=== PATIENT | male | born 1995 | race Two or more races ===

== ENCOUNTER 2017-09-25 17:05 | Emergency (ER) | payer BC, OTHER ==
[2017-09-25] MEDS: BENOXINATE/FLUORESCEIN DROPS RIGHT EYE (19:42)
[2017-09-25] MEDS: FLUORESCEIN STRIP RIGHT EYE (20:13)
[2017-09-25] MEDS: TETRACAINE 0.5% 4 ML OPH RIGHT EYE (20:14)
== END 2017-09-25 20:19 | disposition home or self-care (01) ==
LOC: FTE 20:19
DX: H11.31 Conjunctival hemorrhage, right eye (principal)
CPT/HCPCS: 99283; Z7502

== ENCOUNTER 2018-02-13 16:09 | Emergency (ER) | payer BC ==
[2018-02-13] MEDS: LIDOCAINE 1% (MDV) 20 ML INJ SC (16:35)
[2018-02-13] MEDS: DIPHTH/TET/ACEL PERTUSS (ADULT) 0.5 ML VIAL IM* (16:35)
== END 2018-02-13 17:36 | disposition home or self-care (01) ==
LOC: FTE 17:36
DX: S61.212A Laceration without foreign body of right middle finger without damage to nail, initial encounter (principal); W26.8XXA Contact with other sharp object(s), not elsewhere classified, initial encounter; Y92.9 Unspecified place or not applicable
CPT/HCPCS: 12002; 90471; 90715; 99283-25